=== PATIENT | male | born 1950 | race Caucasian/White ===

== ENCOUNTER 2020-09-12 08:02 | Outpatient (REF) | payer MEDICARE, SELFPAY ==
[2020-09-12 11:24] LABS: MANUAL DIFF FLAG NO
[2020-09-12 11:37] LABS: Hematocrit 49.6 % (42-52); Mean Corpuscular HGB Conc 32.3 g/dl (31.0-36.0); Mean Corpuscular Hemoglobin 30.3 pg (27.0-33.0); Mean Corpuscular Volume 93.9 fL (80-98); Red Blood Count 5.28 X10*6/uL (4.60-5.80); White Blood Count 5.7 X10*3/uL (4.8-10.8)
[2020-09-12 11:38] LABS: Basophils Absolute Auto 0.1 X10*3/uL (0.0-0.2); Basophils Percent Auto 1.6 % (0-2); Eosinophils Absolute Auto 0.1 X10*3/uL (0.0-0.4); Eosinophils Percent Auto 2.3 % (0-4); Imm Gran Abs Auto 0.03 X10*3/uL (0.00-0.03); Imm Gran Pct Auto 0.5 % (0.0-0.4); Lymphocytes Absolute Auto 2.1 X10*3/uL (1.2-4.9); Lymphocytes Percent Auto 36.5 % (20-40); Mean Platelet Volume 11.4 fL (9.4-12.4); Monocytes Absolute Auto 0.7 X10*3/uL (0.1-1.2); Monocytes Percent Auto 11.3 % (2-11); Neutrophils Absolute Auto 2.7 X10*3/uL (2.0-8.3); Neutrophils Percent Auto 47.8 % (45-73); Platelet Count 232 X10*3/uL (160-400); Red Cell Distribution Width 13.2 % (11.0-16.0)
[2020-09-12 11:39] LABS: INTERNATIONAL NORM RATIO 2.3 (0.9-1.1)
[2020-09-12 12:02] LABS: Alanine Aminotransferase 18 U/L (0-40); Albumin Level 4.4 g/dL (3.5-5.0); Alkaline Phosphatase 53 U/L (39-117); Anion Gap 15 (12-20); Aspartate Amino Transferase 20 U/L (5-37); Bilirubin Total 0.7 mg/dL (0.0-1.0); Blood Urea Nitrogen 26 mg/dL (9-16); Calcium 9.6 mg/dL (8.4-10.2); Carbon Dioxide 30 mmol/L (22-29); Chloride 102 mmol/L (96-108); Cholesterol 182 mg/dL; Estimated Glomerular Filt Rate 51; Glucose Fasting 158 mg/dL (60-99); HDL Cholesterol 32 mg/dL; LDL Cholesterol Calculated 86 mg/dl; Sodium 142 mmol/L (135-145); Triglycerides 324 mg/dL
[2020-09-12 12:06] LABS: Thyroid Stimulating Hormone 2.11 uIU/mL (0.32-4.0)
== END 2020-09-12 08:03 | disposition home or self-care (01) ==
LOC: HO.HMGCLDS 08:02
PROVIDERS: Absent Provider Internal Medicine Clinical Cardiac Electrophysiology; PCP Internal Medicine; Visit Provider Internal Medicine
DX: I12.9 Hypertensive chronic kidney disease with stage 1 through stage 4 chronic kidney disease, or unspecified chronic kidney disease (principal); E11.22 Type 2 diabetes mellitus with diabetic chronic kidney disease; N18.30 Chronic kidney disease, stage 3 unspecified; I48.19 Other persistent atrial fibrillation
CPT/HCPCS: 36415; 80053; 80061; 84443; 85025; 85610

== ENCOUNTER 2020-11-06 14:07 | Outpatient (REF) | payer MEDICARE, SELFPAY ==
--- NOTE | ~2020-11-06 | MR_ITS ---
EXAMINATION: MR LUMBAR SPINE WITHOUT CONTRAST CLINICAL INFORMATION: Back pain. COMPARISON: None TECHNIQUE: MRI of the lumbar spine was obtained using routine sequences without contrast. FINDINGS: VERTEBRAL BODIES AND PARASPINAL STRUCTURES: The marrow signal is within normal limits. There is reduced intradiscal signal and evbv-nd-gcioyyxn disc space narrowing particularly from the L3 through the L5 levels. No compression fractures or subluxations are seen. There is a mild rightward curvature of the lumbar spine. Mild endplate edematous changes noted at the L4-L5 level lateralized to the right side. A 2 cm left renal cyst is partially visualized. There are yqcy-pj-ydovsuzs degenerative changes of the sacroiliac joints. CONUS MEDULLARIS AND CAUDA EQUINA: Normal, terminating at the level of L2. No lower cord signal abnormality is seen. The cauda equina nerve roots appear normal. SPINAL LEVELS: L1-L2: Mild facet arthropathy. No disc pathology. No central canal stenosis or foraminal narrowing. L2-L3: Mild degenerative disc bulge and moderate facet arthropathy contributing to mild central canal stenosis. Bulging disc slightly encroaches upon the neural foramina. L3-L4: Generalized disc bulge and hypertrophic facet arthropathy with mild central canal stenosis. Bulging disc moderately encroaches upon the right neural foramen abutting the exiting right L3 nerve root. Facet spurring and bulging disc results in significant left foraminal encroachment with distortion of the exiting left L3 nerve root. L4-L5: Mild posterior disc bulge and hypertrophic facet arthropathy with dorsal epidural fat prominence impressing upon the thecal sac. Mild central canal stenosis and hwdn-ev-jlhqetvl thecal sac deformity. Mild left foraminal narrowing. Asymmetric posterolateral bulging disc and facet spurring result in severe encroachment and compression of the exiting right L4 nerve root. L5-S1: Small central disc protrusion. Hypertrophic facet arthropathy and mild generalized disc bulge with bulky anterior endplate spurring. No central canal stenosis. Vgsv-fw-edfuosil bilateral foraminal narrowing. MR/MR lumbar spine wo con IMPRESSION: Fwvy-co-ygksqlhw spondylitic changes with multilevel mild central canal stenosis from the L2-L3 to the L4-L5 levels. Bulging disc and facet spurring result in significant left foraminal encroachment at the L3-L4 level with distortion of the left L3 nerve root. Moderate right foraminal narrowing. Posterolateral bulging disc and facet spurring at L4-L5 result in severe foraminal encroachment and compression of the exiting right L4 nerve root.
== END 2020-11-06 14:08 | disposition home or self-care (01) ==
LOC: HO.MRI 14:07
PROVIDERS: Visit Provider Internal Medicine
DX: M54.9 Dorsalgia, unspecified (principal); G89.29 Other chronic pain
CPT/HCPCS: 72148

== ENCOUNTER 2020-12-28 07:55 | Outpatient (REF) | payer MEDICARE, SELFPAY ==
[2020-12-28 11:27] LABS: Hematocrit 47.6 % (42-52); Hemoglobin 15.6 g/dl (14.0-18.0); Mean Corpuscular HGB Conc 32.8 g/dl (31.0-36.0); Mean Corpuscular Hemoglobin 31.2 pg (27.0-33.0); Mean Corpuscular Volume 95.2 fL (80-98); Mean Platelet Volume 11.6 fL (9.4-12.4); Platelet Count 182 X10*3/uL (160-400); Red Cell Distribution Width 13.1 % (11.0-16.0); White Blood Count 5.4 X10*3/uL (4.8-10.8)
[2020-12-28 12:13] LABS: Alanine Aminotransferase 13 U/L (0-40); Albumin Level 4.2 g/dL (3.5-5.0); Alkaline Phosphatase 51 U/L (39-117); Anion Gap 16 (12-20); Aspartate Amino Transferase 20 U/L (5-37); Bilirubin Total 0.8 mg/dL (0.0-1.0); Blood Urea Nitrogen 25 mg/dL (9-16); Calcium 9.6 mg/dL (8.4-10.2); Carbon Dioxide 27 mmol/L (22-29); Chloride 103 mmol/L (96-108); Cholesterol 171 mg/dL; Estimated Glomerular Filt Rate 50; Glucose Fasting 160 mg/dL (60-99); HDL Cholesterol 28 mg/dL; LDL Cholesterol Calculated 77 mg/dl; Potassium 4.5 mmol/L (3.3-5.1); Sodium 141 mmol/L (135-145); Total Protein 6.7 g/dL (6.5-8.0); Triglycerides 332 mg/dL
[2020-12-28 12:24] LABS: Estimated Average Glucose 137 mg/dL; Hemoglobin A1c % 6.4 %
[2020-12-28 12:33] LABS: Creatinine Urine 101.97 mg/dL; Microalbum/Creatinine Ratio Ur 82.3 ug/mg cr
== END 2020-12-28 07:56 | disposition home or self-care (01) ==
LOC: HO.HMGCLDS 07:55
PROVIDERS: PCP Internal Medicine; Visit Provider Internal Medicine
DX: E11.9 Type 2 diabetes mellitus without complications (principal); I48.91 Unspecified atrial fibrillation; N18.30 Chronic kidney disease, stage 3 unspecified
CPT/HCPCS: 36415; 80053; 80061; 82043; 83036; 85027

== ENCOUNTER 2023-03-14 11:29 | Outpatient (AMB) | payer MEDICARE, SELFPAY ==
[2023-03-14 11:34] VITALS: BP 108/64; PULSE 84; O2SAT 97; BMI 33.5
--- NOTE | 2023-03-14 11:34 | A.OFFVIS_ITS ---
Intake Vital Signs 03/14/23 11:34 Height 5 ft 9 in Weight 227 lb BMI 33.5 BP 108/64 Blood Pressure Location Lt brachial Position Sitting Pulse 84 Pulse Source Pulse Oximeter Pulse Oximetry (%) 97 Oxygen Delivery Method Room Air Intake Visit Reasons: SWV G0439 Intake Note: Pt is here today for AWV. Allergies amiodarone Allergy (Unknown, Verified 03/14/23 11:40) rash on his eyelids/ looks like sun burn Medication List - Last Reconciled 03/14/23 by Erika Purcell MD blood sugar diagnostic (FreeStyle Lite Strips) check glucose once a day coenzyme Q10 (CoQ-10) 30 mg PO DAILY digoxin 250 mcg PO DAILY diltiazem HCl (Cartia XT) 240 mg PO DAILY diphenhydramine HCl (Benadryl) 25 mg PO TID PRN epinephrine (EpiPen 2-Joel) 0.3 mg (0.3 mL) IM Q4H PRN ezetimibe (Zetia) 10 mg PO DAILY fenofibrate nanocrystallized 145 mg PO DAILY glimepiride 2 mg (2 x 1 mg) PO DAILY lancets (FreeStyle Lancets) check glucose once a day levothyroxine 125 mcg PO QAM metformin ER 500 mg PO BID olmesartan 40 mg PO DAILY omega-3 fatty acids (Fish Oil) PO potassium citrate ER 15 mEq PO BID rosuvastatin 40 mg PO DAILY sulfacetamide sodium 10% 1 drp ophthalmic (eye) Q4H 5 days warfarin 5 mg PO Q OTHER DAY HPI SWV G0439 HPI Details Pt presents for annual.Initiated the conversation about Advanced Directives. Advanced Directives help? patients prepare for current and future decisions about their medical treatment? and place of care. Discussed with patient that it is a process where a patients? current condition and prognosis are reviewed, their wishes for information? regarding their illness are elicited, and likely medical dilemmas are presented? and options discussed. The form can be amended as needed, reviewed yearly and? make changes as needed IPPE/AWV ? year old presents? for her ? Annual? Wellness Visit, initial visit.? Medical / Social History Reviewed? Past Medical History ?Yes? . ? [place]? of Care / Care Team list updated ?Yes . ? Surgical/Hospitalization? History ?Yes . ? Current Medications? (including OTC and supplements) ?Yes . ? Family History ?Yes? . ? Tobacco? Control form ?Yes . ? AUDIT-C (Alcohol use) form? ?Yes . ? Illicit drug use in Social? History ?Yes . ? Current diagnosis of? depression? ?No ? Appropriate PHQ2/PHQ9? completed ?Yes . ? Data entered by ?Medical? Managing Consultant Clinical Professor and reviewed by provider ? Fall Risk ? Fall? History? Have you had any falls with? injury in the past year? ?No . ? Have you had two or more? falls in the past year? ?No . ? Fall Risk Assessment: ?No? falls in the past year . ? HRA filled out by? the patient, reviewed by Provider and scanned. ? IPPE/AWV ? Balance? [place]berg? ?Yes . ? Tandem? walk ?Yes . ? Walk and? Turn ?Yes . ? Rise from? sit to stand ?Yes . ?Vision? Corrective? lens ?Yes ? Vision? screen ? Up-to-date, has an appointment [] for vision? screening and glaucoma screening ?Hearing? Whisper? test ?pass .? Initiated the conversation about Advanced Directives. Advanced Directives help? patients prepare for current and future decisions about their medical treatment? and place of care. Discussed with patient that it is a process where a patients? current condition and prognosis are reviewed, their wishes for information? regarding their illness are elicited, and likely medical dilemmas are presented? and options discussed. The form can be amended as needed, reviewed yearly and? make changes as needed Written? Plan?Completed. See Patient? Documents. [facility], LAT[facility] Medical History Atrial fibrillation Chronic back pain CKD (chronic kidney disease), stage III Degenerative lumbar spinal stenosis Diabetes Enlargement, spleen Gradual-onset memory impairment HTN (hypertension) Hyperlipidemia Nephrolithiasis Surgical History H/O colonoscopy H/O lumbosacral spine surgery H/O rotator cuff surgery No pertinent past surgical history Family History Father No problems noted. Mother Stroke Sister No problems noted. Social History Housing: House Patient Tobacco Use Status: Former Tobacco user e-Cigarette/Vaping Use: Never Used Current occupational status: retired Cognitive needs: No Hearing needs: No Vision needs: Yes Questionnaire Medicare Wellness Checkup [age] What gender do you identify with?: male During the past 4 weeks, how much have you been bothered by emotional problems such as feeling anxious, depressed, irritable, sad or downhearted, and blue?: not at all During the past 4 weeks, has your physical & emotional health limited your social activities with family, friends, neighbors, or groups?: not at all During the past 4 weeks, how much bodily pain have you generally had?: moderate pain During the past 4 weeks, was someone available to help you if you needed & wanted help?: yes, as much as I wanted During the past 4 weeks, what was the hardest physical activity you could do for at least 2 minutes?: heavy Can you get to places out of walking distance without help? (For eg., can you travel alone on buses, taxis or drive your car?): Yes Can you go shopping for groceries or clothes without someone's help?: Yes Can you prepare your own meals?: Yes Can you do your housework without help?: Yes Because of any health problems, do you need the help of another person with your personal care needs such as eating, bathing, dressing or getting around the house?: No Can you handle your own money without help?: Yes During the past 4 weeks, how would you rate your health in general?: very good During the past 4 weeks how have things been going for you?: pretty well Are you having difficulties driving your car?: no Do you always fasten your seat belt when you are in a car?: yes, usually During past 4 weeks, have you been bothered by the following: never: Sexual problems?, Trouble eating well?, Teeth or denture problems? and Problems using the telephone? and seldom: Falling or dizzy when standing up and Tiredness or fatigue? Have you fallen 2 or more times in the past year?: No Are you afraid of falling?: No Are you a smoker?: no During the past 4 weeks, how many drinks of wine, beer, or other alcoholic beverages did you have?: 2-5 drinks per week Do you exercise for about 20 minutes 3 or more times a week?: yes, most of the time Have you been given information to help with the following?: no: Hazards in your house that might hurt you? and no: Keeping track of your medications? How often do you have trouble taking medicines the way you have been told to take them?: I always take medicine as prescribed How confident are you that you can control & manage most of your health problems?: very confident What is your race?: White Mini Mental State Exam (MMSE) Orientation What is the (year) (season) (date) (day) (month)?: year, season, date, day and month Where are we (state) (county) (town or city) (hospital) (floor)?: state, county, town or city, hospital/clinic and floor Registration Name of 3 unrelated objects clearly and slowly, then ask patient to repeat all 3 of them. (1st repeat determines score. Make sure they can repeat all three): object 1, object 2 and object 3 Attention & Calculation (CHOOSE ONE) Ask pt to begin with 100 & count backward by 7. Stop after 5 repeats. If pt cannot ask them to spell the word WORLD backward.: 93 Spell WORLD backwards (DLROW): 5 letters Recall Ask patient to repeat the 3 items from question #3.: object 1, object 2 and object 3 Language Show patient a wristwatch & ask what it is. Repeat for pencil.: watch and pencil Ask the patient to repeat the phrase 'No ifs, ands, or buts' after you.: correct Ask the patient to 'take a piece of paper with their right hand' 'fold paper in half' 'place paper on floor': take paper in right hand, fold paper in half and place paper on floor Print the sentence 'CLOSE YOUR EYES' on a piece. If patient actually closes eyes then score.: followed written direction Give patient a blank piece of paper & ask to write a sentence. Score if it contains a noun & verb.: sentence contains subject and verb Ask patient to copy figure of intersecting pentagons exactly. Score if all 10 angles & 2 intersects are included.: all 10 angles present & 2 are intersected Score Score: 31 Activity of Daily Living Bathing - sponge bath, tub bath or shower: receives no assistance (gets in/out by self, if usual bathing means Dressing - getting clothes from closets & drawers, including inner/outer garments & fasteners.: gets clothes & gets completely dressed without help Toileting - going to the 'toilet room' for urine/bowel elimination & cleaning self/arranging clothes: goes to toilet room, cleans self, arranges clothes without help Transfer: moves in & out of bed and chair without help (may use support object) Continence: controls urination/bowel movements completely by self Feeding: feeds self without help Total Score: 0 Information obtained from: patient Using telephone: independent Traveling: independent Shopping: independent Preparing meals: independent Housework: independent Taking medicine: independent Managing money: independent PHQ-9 Over the last 2 weeks, how often have you been bothered by any of the following problems? 1. Little interest or pleasure in doing things: not at all 2. Feeling down, depressed, or hopeless: not at all 3. Trouble falling or staying asleep, or sleeping too much: not at all 4. Feeling tired or having little energy: not at all 5. Poor appetite or overeating: not at all 6. Feeling bad about yourself - or that you are a failure or have let yourself or your family down: not at all 7. Trouble concentrating on things, such as reading the newspaper or watching television: not at all 8. Moving or speaking so slowly that other people could have noticed. Or the opposite - being so fidgety or restless that you have been moving around a lot more than usual: not at all 9. Thoughts that you would be better off or of hurting yourself in some way: not at all Total score: 0 Depression Screening Interpretation: Negative Source: Developed by Drs. Lg Blanco, Dorina John, Riley Colmenares and colleagues, with an educational eloy from [employer]. Review of Systems Const All systems reviewed & are unremarkable except as noted in HPI and below Reports no additional complaints Eyes Reports no additional complaints ENT Reports no additional complaints Card Reports no additional complaints Resp Reports no additional complaints GI Reports no additional complaints Physical Exam Vital Signs: Last Vital Signs Pulse 84 03/14/23 11:34 BP 108/64 03/14/23 11:34 Pulse Ox 97 03/14/23 11:34 Oxygen Delivery Method Room Air 03/14/23 11:34 BMI result Body Mass Index 33.5 Const General: no acute distress HEENT Head: Yes normal to inspection Neck Neck: Yes no lymphadenopathy and Yes supple Resp Effort & Inspection: normal respiratory effort Auscultation: clear to auscultation bilaterally Cardio Rhythm: regular rhythm Heart sounds: S1 normal heart sound present and S2 normal heart sound present GI Inspection: Yes normal to inspection Palpation (GI): Soft to palpation Percussion: Yes normal to percussion Auscultation: normal bowel sounds Extrem General: Yes no clubbing, cyanosis or edema Assessment & Plan Assessment & Plan (1) HTN (hypertension): Comment: goal < 130/80 Code(s): I10 - Essential (primary) hypertension Plan: Continue medications (2) Diabetes: Comment: A1C < 8, intolerant to metformin, diarrhea Code(s): E11.9 - Type 2 diabetes mellitus without complications Plan: A1c 7.0, ADA diet increase exercise weight loss discussed with the patient. he will continue metformin and return in 6 months with a fasting labs before (3) CKD (chronic kidney disease), stage III: Code(s): N18.30 - Chronic kidney disease, stage 3 unspecified Plan: Avoid NSAIDs and monitor renal function (4) Atrial fibrillation: Comment: Dr. Alcala at [facility], patient cannot afford Eliquis Code(s): I48.91 - Unspecified atrial fibrillation Plan: Continue current medications and follow-up with Cardiology annually (5) Annual physical exam: Code(s): Z00.00 - Encounter for general adult medical examination without abnormal findings Plan: Well-balanced diet and regular exercise discussed with the patient .weight loss was recommended. Follow-up in 6 months with a fasting labs before Orders: Orders Comprehensive Ethel. Panel Fast 6 Months E11.9 - Type 2 diabetes mellitus without complications, I10 - Essential (primary) hypertension, I48.91 - Unspecified atrial fibrillation, N18.30 - Chronic kidney disease, stage 3 unspecified, Z00.00 - Encounter for general adult medical examination without abnormal findings Hemoglobin A1c 6 Months E11.9 - Type 2 diabetes mellitus without complications, I10 - Essential (primary) hypertension, I48.91 - Unspecified atrial fibrillation, N18.30 - Chronic kidney disease, stage 3 unspecified, Z00.00 - Encounter for general adult medical examination without abnormal findings Lipid Panel 6 Months E11.9 - Type 2 diabetes mellitus without complications, I10 - Essential (primary) hypertension, I48.91 - Unspecified atrial fibrillation, N18.30 - Chronic kidney disease, stage 3 unspecified, Z00.00 - Encounter for general adult medical examination without abnormal findings Microalbumin, Random (w Creat) 6 Months E11.9 - Type 2 diabetes mellitus without complications, I10 - Essential (primary) hypertension, I48.91 - Unspecified atrial fibrillation, N18.30 - Chronic kidney disease, stage 3 unspecified, Z00.00 - Encounter for general adult medical examination without abnormal findings Complete Blood Count Auto Diff 6 Months E11.9 - Type 2 diabetes mellitus without complications, I10 - Essential (primary) hypertension, I48.91 - Unspecified atrial fibrillation, N18.30 - Chronic kidney disease, stage 3 unspecified, Z00.00 - Encounter for general adult medical examination without abnormal findings Quality Reporting (2019) Depression/Bipolar (159/160/161/177) PHQ-9: Total score: 0 Coding Level of Care Code Medicare Subsequent (G0439) Diagnoses HTN (hypertension) I10 Diabetes E11.9 CKD (chronic kidney disease), stage III N18.30 Atrial fibrillation I48.91 Annual physical exam Z00.00 CPT Codes Advance Care Planning - Time spent: 1-15 minutes, not on file ([id number]) Advance Care Planning Advance Care Planning discussion: Exists, not on file Forms completed: Health Care Proxy Time spent: 1-15 minutes, not on file
== END 2023-03-14 12:30 | disposition home or self-care (01) ==
PROVIDERS: Visit Provider Internal Medicine
DX: Z00.00 Encounter for general adult medical examination without abnormal findings (principal); I12.9 Hypertensive chronic kidney disease with stage 1 through stage 4 chronic kidney disease, or unspecified chronic kidney disease; E11.22 Type 2 diabetes mellitus with diabetic chronic kidney disease; N18.30 Chronic kidney disease, stage 3 unspecified; I48.91 Unspecified atrial fibrillation
CPT/HCPCS: 1124F; G0439

== ENCOUNTER 2023-09-15 10:53 | Outpatient (AMB) | payer MEDICARE, SELFPAY ==
[2023-09-15 11:05] VITALS: BP 120/70; PULSE 61; O2SAT 97; BMI 33.4
--- NOTE | 2023-09-15 11:05 | MHC.PC.OV ---
Vital Signs 09/15/23 11:05 Height 5 ft 9 in Weight 226 lb BMI 33.4 BP 120/70 Blood Pressure Location Lt brachial Position Sitting Pulse 61 Pulse Source Pulse Oximeter Pulse Oximetry (%) 97 Oxygen Delivery Method Room Air Intake Visit Reasons: 6 month follow up Intake Note: Pt is here today for 6 months follow up visit on DM. Allergies amiodarone Allergy (Unknown, Verified 09/15/23 11:08) rash on his eyelids/ looks like sun burn Medication List - Last Reconciled 09/15/23 by Erika Purcell MD blood sugar diagnostic (FreeStyle Lite Strips) check glucose once a day coenzyme Q10 (CoQ-10) 30 mg PO DAILY digoxin 250 mcg PO DAILY diltiazem HCl (Cartia XT) 240 mg PO DAILY diphenhydramine HCl (Benadryl) 25 mg PO TID PRN epinephrine (EpiPen 2-Joel) 0.3 mg (0.3 mL) IM Q4H PRN ezetimibe (Zetia) 10 mg PO DAILY fenofibrate nanocrystallized 145 mg PO DAILY glimepiride 2 mg (2 x 1 mg) PO DAILY lancets (FreeStyle Lancets) check glucose once a day levothyroxine 125 mcg PO QAM metformin ER 500 mg PO BID olmesartan 40 mg PO DAILY omega-3 fatty acids (Fish Oil) PO potassium citrate ER 15 mEq PO BID rosuvastatin 40 mg PO DAILY sulfacetamide sodium 10% 1 drp ophthalmic (eye) Q4H 5 days warfarin 5 mg PO Q OTHER DAY Tobacco use date assessed: 09/15/23 Fall risk assessment: No Falls in past year Last assessed Fall Risk: 09/15/23 Dental Screening Dental Screen Date: 09/15/23 Did you have a dental visit in the last 12 months?: Yes Did you have a dental problem in the last 6 months where you did not have access to dental care?: No Was dental information given to patient?: Patient has dentist HPI 6 month follow up HPI Details Patient presents for the follow-up of chronic AFib type 2 diabetes hyperlipidemia hypothyroidism and hypertension stable on current medications. [facility] Medical History Degenerative lumbar spinal stenosis Hyperlipidemia Gradual-onset memory impairment CKD (chronic kidney disease), stage III Nephrolithiasis Enlargement, spleen Atrial fibrillation Chronic back pain HTN (hypertension) Diabetes Surgical History H/O lumbosacral spine surgery H/O rotator cuff surgery H/O colonoscopy No pertinent past surgical history Family History Father No problems noted. Mother Stroke Sister No problems noted. Social History Housing: House Patient Tobacco Use Status: Former Tobacco user e-Cigarette/Vaping Use: Never Used Current occupational status: retired Cognitive needs: No Hearing needs: No Vision needs: Yes Questionnaire PHQ-9 Over the last 2 weeks, how often have you been bothered by any of the following problems? 1. Little interest or pleasure in doing things: not at all 2. Feeling down, depressed, or hopeless: not at all 3. Trouble falling or staying asleep, or sleeping too much: not at all 4. Feeling tired or having little energy: not at all 5. Poor appetite or overeating: not at all 6. Feeling bad about yourself - or that you are a failure or have let yourself or your family down: not at all 7. Trouble concentrating on things, such as reading the newspaper or watching television: not at all 8. Moving or speaking so slowly that other people could have noticed. Or the opposite - being so fidgety or restless that you have been moving around a lot more than usual: not at all 9. Thoughts that you would be better off or of hurting yourself in some way: not at all Total score: 0 Depression Screening Interpretation: Negative Depression Screening Done: Yes 92039 - PHQ-9 Billing: Yes Source: Developed by Drs. Lg Blanco, Dorina John, Riley Colmenares and colleagues, with an educational eloy from [employer]. Thrive Questionnaire Date Thrive assessed: 09/15/23 I am a: Patient What is your living situation today?: I have a steady place to live Within the past 12 months, did the food you bought not last and you didn't have the money to get more?: Never true Within the past 12 months, did you worry whether your food would run out before you got money to buy more?: Never true Do you have trouble paying for medicines?: No Do you have trouble getting transportation to medical appointments?: No Do you have trouble paying your heating and electricity bill?: No Do you have trouble taking care of your child, family member or friend?: No Do you have trouble with day-to-day activities such as bathing, preparing meals, shopping, managing finances, etc.?: No Are you currently unemployed and looking for a job?: No Are you interested in more education?: No Please select the resources that you would like help with: None Currently or been in a relationship where the following occur: no concerns reported THRIVE Score: 0 AUDIT C Alcohol Use Questionnaire (AUDIT-C) 1. How often do you have a drink containing alcohol?: Monthly or less 2. How many drinks containing alcohol do you have on a typical day when you are drinking?: 1 or 2 3. How often do you have six or more drinks on one occasion?: Never Total Score: 1 VERONICA-7 AMB Questionnaire VERONICA-7 Date VERONICA - 7 assessed: 09/15/23 Feeling nervous, anxious, or on edge: 0 = Not at all Not being able to stop or control worryin = Not at all Worrying too much about different things: 0 = Not at all Trouble relaxin = Not at all Being so restless that it is hard to sit still: 0 = Not at all Becoming easily annoyed or irritable: 0 = Not at all Feeling afraid as if something awful might happen: 0 = Not at all Total VERONICA-7 score (0-4 normal; 5-9 mild; 10-14 moderate; 15-21 severe): 0 Source: Developed by Drs. Lg Blanco, Dorina John, Riley Colmenares and colleagues, with an educational eloy from [employer]. VERONICA-7 Assessment Billing VERONICA-7 Assessment Tool: VERONICA-7 Assessment 30916 Review of Systems Const All systems reviewed & are unremarkable except as noted in HPI and below Eyes Reports no additional complaints ENT Reports no additional complaints Card Reports no additional complaints Resp Reports no additional complaints GI Reports no additional complaints Physical exam (Primary Care) Vital Signs: Last Vital Signs Pulse 61 09/15/23 11:05 BP 120/70 09/15/23 11:05 Pulse Ox 97 09/15/23 11:05 Oxygen Delivery Method Room Air 09/15/23 11:05 BMI result Body Mass Index 33.4 Tobacco/Smoking Status: Tobacco use Status Tobacco use date assessed 09/15/23 09/15/23 11:12 Patient Tobacco Use Status Former Tobacco user 09/15/23 11:05 e-Cigarette/Vaping Use Never Used 09/15/23 11:05 PHQ-9: PHQ-9 Score PHQ-9: Total score 0 09/15/23 11:12 Depression Screening Interpretation: Negative Thrive Assessment: Date of Thrive Assessment Date Thrive assessed 09/15/23 09/15/23 11:12 Currently or been in a relationship where the following occur: no concerns reported Const General: no acute distress HENMT Head: Yes normal to inspection Ears: hearing grossly normal bilaterally Face and sinus: Yes normal facial exam Mouth: Normal oral and palatal mucosa present Eyes General: appearance normal, both eyes and all related structures Resp Effort & Inspection: normal respiratory effort Auscultation: clear to auscultation bilaterally Cardio Rhythm: regular rhythm Heart sounds: S1 normal heart sound present and S2 normal heart sound present GI Inspection: Yes normal to inspection Palpation (GI): Soft to palpation Percussion: Yes normal to percussion Auscultation: normal bowel sounds Assessment and Plan Assessment & Plan (1) Hyperlipidemia: Comment: On Crestor fenofibrate and Zetia Code(s): E78.5 - Hyperlipidemia, unspecified Plan: Change Crestor to atorvastatin because of microscopic albuminuria, continue fenofibrate and Zetia (2) Annual physical exam: Code(s): Z00.00 - Encounter for general adult medical examination without abnormal findings Plan: Well-balanced diet regular exercise discussed with the patient (3) HTN (hypertension): Comment: goal < 130/80 Code(s): I10 - Essential (primary) hypertension Plan: Continue current medications (4) Diabetes: Comment: A1C < 8, intolerant to metformin, diarrhea, follow-up with Dr. Brantley Code(s): E11.9 - Type 2 diabetes mellitus without complications Plan: A1c was 6.7, ADA diet regular physical activity discussed with the patient. Patient will check the guerra of Jardiance at [facility] and if it is affordable he replace glimepiride with it. (5) CKD (chronic kidney disease), stage III: Code(s): N18.30 - Chronic kidney disease, stage 3 unspecified Plan: Monitor renal function avoid NSAID (6) Atrial fibrillation: Comment: Dr. Alcala at [facility], patient cannot afford Eliquis Code(s): I48.91 - Unspecified atrial fibrillation Plan: Continue current medications, patient will check the guerra of Eliquis at [facility]., follow-up 5 months with a fasting labs Orders: Orders Lipid Panel 6 Weeks E78.5 - Hyperlipidemia, unspecified Complete Blood Count Auto Diff 5 Months E11.9 - Type 2 diabetes mellitus without complications, I10 - Essential (primary) hypertension, I48.91 - Unspecified atrial fibrillation, N18.30 - Chronic kidney disease, stage 3 unspecified, Z00.00 - Encounter for general adult medical examination without abnormal findings Hemoglobin A1c 5 Months E11.9 - Type 2 diabetes mellitus without complications, I10 - Essential (primary) hypertension, I48.91 - Unspecified atrial fibrillation, N18.30 - Chronic kidney disease, stage 3 unspecified, Z00.00 - Encounter for general adult medical examination without abnormal findings Comprehensive [place]. Panel Fast 5 Months E11.9 - Type 2 diabetes mellitus without complications, I10 - Essential (primary) hypertension, I48.91 - Unspecified atrial fibrillation, N18.30 - Chronic kidney disease, stage 3 unspecified, Z00.00 - Encounter for general adult medical examination without abnormal findings Lipid Panel 5 Months E11.9 - Type 2 diabetes mellitus without complications, I10 - Essential (primary) hypertension, I48.91 - Unspecified atrial fibrillation, N18.30 - Chronic kidney disease, stage 3 unspecified, Z00.00 - Encounter for general adult medical examination without abnormal findings Microalbumin, Random (w Creat) 5 Months E11.9 - Type 2 diabetes mellitus without complications, I10 - Essential (primary) hypertension, I48.91 - Unspecified atrial fibrillation, N18.30 - Chronic kidney disease, stage 3 unspecified, Z00.00 - Encounter for general adult medical examination without abnormal findings Medications: New atorvastatin 80 mg PO BEDTIME 90 tabs 3RF empagliflozin (Jardiance) 25 mg PO DAILY 90 tabs 3RF apixaban (Eliquis) 5 mg PO BID 180 tabs 3RF Discontinued rosuvastatin Discontinued Reason: Doctor's Order 40 mg PO DAILY 90 tabs 3RF Coding Level of Care Code Est Pt Level 4 (27954) Diagnoses Hyperlipidemia E78.5 Annual physical exam Z00.00 HTN (hypertension) I10 Diabetes E11.9 CKD (chronic kidney disease), stage III N18.30 Atrial fibrillation I48.91 Additional Codes VERONICA-7 Assessment Billing - VERONICA-7 Assessment Tool: VERONICA-7 Assessment [id number] ([id number])
== END 2023-09-15 15:32 | disposition home or self-care (01) ==
PROVIDERS: PCP Internal Medicine; Visit Provider Internal Medicine
DX: E11.69 Type 2 diabetes mellitus with other specified complication (principal); N18.30 Chronic kidney disease, stage 3 unspecified; I48.91 Unspecified atrial fibrillation; E78.5 Hyperlipidemia, unspecified; I10 Essential (primary) hypertension
CPT/HCPCS: 99214